=== PATIENT | female | born 1985 | race Caucasian/White ===

== ENCOUNTER → 2017-05-14 | Outpatient (CLI) | payer OTHER ==
[~2017-05-14] MED LIST: B Complex1 EAC2 PO; BIRTH CONTROL; DULO60; HYDPAM25 PO; IBUP600 PO; LEVSOD50 PO; METR500 PO; ONDA4 PO; Percocet 5-3251 EACH PO; THERALITH XR T1 EACH PO; Zofran Odt4 MG SL
[2017-05-14 11:54] LABS: Source, Urine Clean Catch
[2017-05-14 12:44] LABS: Bilirubin, Urine Neg (Neg); Blood, Urine 1+ (Neg); Glucose Qualitative, Urine 2+ (Neg); Ketones, Urine Neg (Neg); Leukocyte Esterase, Urine 2+ (Neg); Nitrite, Urine Neg (Neg); Protein, Urine 2+ (Neg); Urobilinogen, Urine NORM (Normal)
[2017-05-14 12:54] LABS: Appearance, Urine Hazy (Clear); Color, Urine Yellow (P-Yellow)
[2017-05-14 13:01] LABS: Calcium Oxalate Crystals Mod /hpf; White Blood Cells, Urine TNTC /hpf (0-5)
[2017-05-14 13:02] LABS: Bacteria Many /hpf; Squamous Epithelial Cells Few /hpf (Few)
== END ==
LOC: LAB 11:52
PROVIDERS: Obstetrics & Gynecology
DX: R82.99 Other abnormal findings in urine (principal)
CPT/HCPCS: 81001; 87077; 87086; 87186

== ENCOUNTER → 2017-05-22 | Outpatient (CLI) | payer OTHER | LOC: LAB 11:44 | DX: Z34.80 Encounter for supervision of other normal pregnancy, unspecified trimester (principal) | CPT/HCPCS: 87081; 87653 ==

== ENCOUNTER → 2017-06-07 | Outpatient (CLI) | payer OTHER ==
[2017-06-07 14:03] LABS: Bilirubin, Urine Neg (Neg); Blood, Urine Neg (Neg); Glucose Qualitative, Urine Neg (Neg); Ketones, Urine Neg (Neg); Leukocyte Esterase, Urine 1+ (Neg); Nitrite, Urine Neg (Neg); Protein, Urine Neg (Neg); Specific Gravity, Urine 1.015 (1.003-1.022); Urobilinogen, Urine 2+ (Normal); pH, Urine 6.5 (5.0-8.0)
[2017-06-07 14:20] LABS: Appearance, Urine Clear (Clear); Color, Urine Yellow (P-Yellow)
[2017-06-07 14:21] LABS: Bacteria Few /hpf; Calcium Oxalate Crystals Few /hpf; Mucus Light (0-Heavy)
[2017-06-07 14:22] LABS: Squamous Epithelial Cells Few /hpf (Few)
== END ==
LOC: LAB 13:55
PROVIDERS: Advanced Practice Midwife
DX: N39.0 Urinary tract infection, site not specified (principal)
CPT/HCPCS: 81001; 87086

== ENCOUNTER → 2017-06-13 | Outpatient (CLI) | payer OTHER ==
[2017-06-13 10:02] LABS: Source, Urine Clean Catch
[2017-06-13 13:08] LABS: Appearance, Urine Clear (Clear); Bilirubin, Urine Neg (Neg); Blood, Urine Neg (Neg); Color, Urine Yellow (P-Yellow); Glucose Qualitative, Urine Neg (Neg); Ketones, Urine 1+ (Neg); Leukocyte Esterase, Urine 1+ (Neg); Nitrite, Urine Neg (Neg); Protein, Urine Neg (Neg); Urobilinogen, Urine NORM (Normal)
[2017-06-13 13:29] LABS: Bacteria Few /hpf; Red Blood Cells, Urine Not Seen /hpf (0-2); Squamous Epithelial Cells Many /hpf (Few)
== END ==
LOC: LAB 09:58
PROVIDERS: Advanced Practice Midwife
DX: N39.0 Urinary tract infection, site not specified (principal)
CPT/HCPCS: 81001; 87086

== ENCOUNTER 2017-06-20 17:39 | Inpatient (IN) | payer OTHER ==
[~2017-06-20] VITALS: Ht 170.2 cm; Wt 66.0 kg
[~2017-06-20 17:39] MED LIST changes: -HYDPAM25 PO; -METR500 PO; -THERALITH XR T1 EACH PO
[2017-06-20] MEDS ORDERED: METR500 PO (18:26)
[2017-06-20] MEDS ORDERED: HYDPAM25 PO (18:27)
[2017-06-20] MEDS ORDERED: THERALITH XR T1 EACH PO (18:27)
[2017-06-21 06:20] LABS: Hematocrit 31.1 % (33.0-51.0); Hemoglobin 10.3 g/dL (11.5-16.0); Mean Corpuscular HGB 27.9 pg (26.0-34.0); Mean Corpuscular HGB Conc 33.1 g/dL (31.5-36.5); Mean Corpuscular Volume 84 fL (80-100); Mean Platelet Volume 10.4 fL (9.1-12.4); Platelet Count 160 K/mm3 (150-400); RDW Coefficient Variation 13.2 % (11.7-14.2); RDW Standard Deviation 40.3 fL (35.1-46.3); Red Blood Cell Count 3.69 M/mm3 (3.80-5.20); White Blood Cell Count 9.81 K/mm3 (4.00-11.30)
== END 2017-06-21 20:05 | disposition home or self-care (01) | DRG 775 ==
LOC: BC 17:39
PROVIDERS: Advanced Practice Midwife
PROC: 10E0XZZ Delivery of Products of Conception, External Approach (ICD-10-PCS; principal; 2017-06-20)
DX: O99.284 Endocrine, nutritional and metabolic diseases complicating childbirth (principal); O99.344 Other mental disorders complicating childbirth; E03.9 Hypothyroidism, unspecified; F41.9 Anxiety disorder, unspecified; Z3A.39 39 weeks gestation of pregnancy; Z37.0 Single live birth; Z79.899 Other long term (current) drug therapy
CPT/HCPCS: 36415; 84443; 85027; J2590